=== PATIENT | female | born 1940 | race Caucasian/White ===

== ENCOUNTER → 2017-10-28 | Outpatient (CLI) | payer OTHER ==
[~2017-10-28] MED LIST: ACID REDUCER 1150 MG PO; ADVAIR 250/501 DISK IH; ALBUTEROL SULF8.5 GM IH; ASPIR-TRIN325 M1 PO; ASPIRIN E.C.81 M1 PO; BUSPAR15 MG PO; BUSPIRONE HCL15 MG PO; CALCIUM CARBON600 M1 PO; CATAPRES-TTS 11 EACH TD; CLARITIN,ALAVAR10 MG PO; CLONIDINE HCL0.1 MG PO; CYMBALTA20 MG PO; CYMBALTA30 MG PO; ENABLEX7.5 MG PO; EYE DROP TEARS15 ML RIGHT EYE; FEMARA2.5 MG PO; FLEXERIL10 MG PO; FLEXERIL5 MG PO; FLONASE16 G1 BOTH NARES; FLOVENT DISKUS1 DIS2 NS; GABAPENTIN600 MG PO; HABITROL,NICODE14 MG TD; IBUPROFEN800 MG PO; ISORDIL,SORBITRA5 MG PO; ISOSORBIDE DINI30 MG PO; ISOSORBIDE MONO30 MG PO; LIDODERM 5% P1 PATCH TD; LIPITOR80 MG PO; LISINOPRIL2.5 MG PO; LITE COAT ASPI325 M1 PO; LOPRESSOR25 MG PO; LORATADINE10 M2 PO; LORTAB 5-325 M1 EACH PO; METOPROLOL TART25 MG PO; MOTRIN600 MG PO; MUCUS RELIEF600 M1 PO; NAPROSYN-EC500 MG PO; NEURONTIN800 MG PO; NITROSTAT,NITR0.4 M1 SL; NORCO 5/3251 TABLET PO; OXYBUTYNIN CHLOR5 MG PO; PERCOCET 5/31 TABLET PO; PLAVIX75 MG PO; PROVENTIL HFA6.7 GM IH; Proventil,Ventolin H IH; RANITIDINE HCL150 MG PO; RESTASIS 01 DROP/0.4 BOTH EYES; SPIRIVA1 INHALATI IH; TESSALON PERLE100 MG PO; THERAGRAN1 TABLET PO; TOVIAZ4 MG PO; TRAMADOL HCL50 MG PO; ULTRAM50 MG PO; VESICARE5 MG PO; VITAMIN D-32000 UNI1 PO; VITAMIN E400 UNIT PO; Vitamin D PO; Vitamin-E PO; ZESTRIL,PRINIVI10 MG PO; ZITHROMAX250 MG PO; Zantac PO
== END | disposition home or self-care (01) ==
LOC: CDC 12:52
DX: Z01.810 Encounter for preprocedural cardiovascular examination (principal); I49.3 Ventricular premature depolarization; R00.0 Tachycardia, unspecified; R94.31 Abnormal electrocardiogram [ECG] [EKG]
CPT/HCPCS: 93000